=== PATIENT | male | born 1950 | race Two or more races ===

== ENCOUNTER 2017-05-20 11:01 | Observation (INO) | payer SELFPAY ==
[~2017-05-20] VITALS: Ht 170.2 cm; Wt 65.8 kg
[2017-05-20] MEDS ORDERED: SODIUM CHLORIDE 0.9% 1,000 ML IVB ONE (11:41)
[2017-05-20 12:03] LABS: Basophils # (auto) 0 uL; Basophils % (auto) 0.3 % (0.0-2.0); CONDITION Y; Eosinophils # (auto) 0.1 uL; Eosinophils % (auto) 0.6 % (0.0-7.0); Hematocrit 39.7 % (41.0-53.0); Hemoglobin 13.8 g/dL (13.5-17.5); Lymphocytes # (auto) 1.6 uL; Lymphocytes % (auto) 12.4 % (10.0-50.0); Mean Corpuscular Hemoglobin 32.2 pg (28.0-32.0); Mean Corpuscular Hgb Conc. 34.7 g/dL (32.0-36.0); Mean Corpuscular Volume 92.8 fL (80.0-100.0); Mean Platelet Volume 7.9 fL (6.9-10.8); Monocytes # (auto) 0.6 uL; Monocytes % (auto) 4.5 % (0.0-12.0); Neutrophils # (auto) 10.4 uL; Neutrophils % (auto) 82.2 % (37.0-80.0); Platelet Count (auto) 330 10^3/uL (140-450); Red Cell Distribution Width 12.7 % (11.8-14.3); White Blood Cell 12.6 10^3/uL (4.4-10.8)
[2017-05-20 12:16] LABS: INR 1.04 (0.9-1.15); Partial Thromboplastin Time 24.6 sec (22.64-33.71); Prothrombin Time 11.3 sec (9.37-12.3)
[2017-05-20] MEDS ORDERED: LIDOCAINE 2%HCL (LOCAL ANESTH.) INJ 20ML MDV ONE (12:24)
[2017-05-20 12:35] LABS: Albumin 3.6 g/dL (3.4-5.0); Bilirubin, Total 0.5 mg/dL (0.2-1.0); Calcium 7.9 mg/dL (8.5-10.1); Magnesium 2.2 mg/dL (1.6-2.6); Potassium 3.4 mmol/L (3.5-5.1); Total Protein 6.7 g/dL (6.4-8.2)
[2017-05-20] MEDS ORDERED: PROMETHAZINE HCL 25 MG/ML 1ML IV ONE (12:45)
[2017-05-20] MEDS ORDERED: HYDROmorphone HCL 2 MG/ML VL IV ONE (12:45)
[2017-05-20] MEDS ORDERED: LIDOCAINE 2%HCL (LOCAL ANESTH.) INJ 20ML MDV IJ ONE (13:00)
[2017-05-20] MEDS ORDERED: cefTRIAXone 1GM/50ML D5W 50 ML IV ONE (13:30)
[2017-05-20] MEDS ORDERED: POTASSIUM CHL 10% (20 MEQ/15ML) 15ml ORAL SOLN PO ONE (13:30)
[2017-05-20] MEDS ORDERED: TETANUS-DIPTH-ACEL PERTUSSIS 0.5ML SYRG IM ONE (13:30)
[2017-05-20 15:05] LABS: Hepatitis B Surface Antibody Negative
[2017-05-20 15:46] VITALS: BP 116/69
== END 2017-05-20 16:11 | disposition home or self-care (01) | DRG 605 ==
LOC: ER 11:01 → EDBD 11:01 → OVERFLOW 11:42 → ER 16:11
PROVIDERS: ADMIT Family Medicine; ATTEND Family Medicine
DX: S01.01XA Laceration without foreign body of scalp, initial encounter (principal); E87.6 Hypokalemia; V80.018A Animal-rider injured by fall from or being thrown from other animal in noncollision accident, initial encounter; Y92.89 Other specified places as the place of occurrence of the external cause; Y93.I9 Activity, other involving external motion; Y99.8 Other external cause status; Z23 Encounter for immunization
CPT/HCPCS: 12035; 36415; 70450; 71010; 72125; 80053; 83735; 85025; 85610; 85730; 86703; 86706; 86803; 87340; 90471; 90715; 96361; 96365; 96375; 99285; G0378; J0696; J1170; J2550